=== PATIENT | female | born 1975 | race Caucasian/White ===

== ENCOUNTER 2017-06-21 03:57 | Emergency (ER) | payer MEDICAID ==
--- NOTE | 2017-06-21 04:17 | EDPHY ---
H & P Stated Complaint: SOB/CP Time Seen by Provider: 06/21/17 04:10 HPI/ROS: Chief Complaint: Shortness of breath, chest tightness HPI: 41-year-old wounds been having chest tightness and shortness of breath for about 3 days. Symptoms got little bit worse this morning she became concerned. She also had an episode of some tenderness in her left calf yesterday afternoon. No leg swelling. No substernal chest pain. No radiation. Does not have a history of similar episodes in the past. No recent trauma or long. Is of immobility. She is not on any hormone replacement. No fevers or chills. No nausea or vomiting. No cough. ROS: 10 point Review of Systems is negative except as noted in the HPI. PMH: Seizure disorder Social History: No smoking, no alcohol, CBD oil Family History: non-contributory Physical Exam: Gen: Awake, Alert, No Distress HEENT: Nose: no rhinorrhea Eyes: PERRLA, EOMI Mouth: Moist mucosa Neck: Supple, no JVD Chest: nontender, lungs clear to auscultation Heart: S1, S2 normal, no murmur Abd: Soft, non-tender, no guarding Back: no CVA tenderness, no midline tenderness Ext: no edema, non-tender Skin: no rash Neuro: CN II-XII intact, Sensation grossly intact, Strength 5/5 in bilateral upper and lower extremities - Personal History LMP (Females 10-55): 1-7 Days Ago Current Tetanus Diphtheria and Acellular Pertussis (TDAP): Unsure Tetanus Vaccine Date: 1985 - Medical/Surgical History Hx Asthma: No Hx Chronic Respiratory Disease: No Hx Diabetes: No Hx Cardiac Disease: No Hx Renal Disease: No Hx Cirrhosis: No Hx Alcoholism: No Hx HIV/AIDS: No Hx Splenectomy or Spleen Trauma: No Other PMH: TUBAL LIGATION, SZ - Social History Smoking Status: Never smoked Constitutional: Initial Vital Signs Temperature (C) 36.3 C 06/21/17 04:04 Heart Rate 82 06/21/17 04:04 Respiratory Rate 16 06/21/17 04:04 Blood Pressure 135/92 H 06/21/17 04:04 O2 Sat (%) 95 06/21/17 04:04 O2 Delivery Mode Room Air Allergies/Adverse Reactions: carbamazepine [From Tegretol] Allergy (Severe, Verified 05/06/11 11:02) Hives/ SWOLLEN TONGUE divalproex sodium [From Depakote] Allergy (Severe, Verified 05/06/11 11:02) RASH/ INCREASE SEIZURE ACTIVITY banana [Banana] Allergy (Intermediate, Verified 05/06/11 11:02) Hives peanut [Peanut] Allergy (Intermediate, Verified 05/06/11 11:02) SENSITIVE- SCRATCHY THROAT Shellfish *RETIRED-11/25/11 [Shellfish] Allergy (Intermediate, Verified 11:02) MIGRAINES latex [Latex] Allergy (Unknown, Verified 05/06/11 11:02) levetiracetam [From Keppra] Allergy (Unknown, Verified 05/06/11 11:02) Home Medications: Medication Instructions Recorded No Medications [NO HOME 1 ea MISC 12/03/10 MEDICATIONS] Cbd 06/21/17 Medical Decision Making - Diagnostics EKG Interpretation: ECG time 4:19 a.m., sinus rhythm with a rate of 70, normal axis, normal intervals, no acute ST or T-wave changes. Impression: Normal ECG. Imaging Results: Chest x-ray is negative per my interpretation. Imaging: I viewed and interpreted images myself ED Course/Re-evaluation: Patient's CBC, troponin, D-dimer, and chemistry entirely normal. Patient is resting comfortably. Vital signs are normal. Oxygen saturations are 98% she is not tachycardic. Blood pressure is normal. No evidence of acute cardiopulmonary disease at this time. Will discharge her with follow up as an outpatient, return for any concerns. - Data Points Laboratory Results: Laboratory Results 06/21/17 05:10 06/21/17 05:10 06/21/17 06/21/17 06/21/17 05:10 05:10 05:00 WBC 6.03 10^3/uL 10^3/uL (3.80-9.50) RBC 5.18 10^6/uL 10^6/uL (4.18-5.33) Hgb 15.1 g/dL g/dL (12.6-16.3) Hct 44.6 % % (38.0-47.0) MCV 86.1 fL fL (81.5-99.8) MCH 29.2 pg pg (27.9-34.1) MCHC 33.9 g/dL g/dL (32.4-36.7) RDW 13.5 % % (11.5-15.2) Plt Count 225 10^3/uL 10^3/uL (150-400) MPV 9.8 fL fL (8.7-11.7) Neut % (Auto) 64.2 % % (39.3-74.2) Lymph % (Auto) 25.2 % % (15.0-45.0) Lee % (Auto) 6.8 % % (4.5-13.0) Eos % (Auto) 2.3 % % (0.6-7.6) Baso % (Auto) 1.3 % % (0.3-1.7) Nucleat RBC Rel Count 0.0 % % (0.0-0.2) Absolute Neuts (auto) 3.87 10^3/uL 10^3/uL (1.70-6.50) Absolute Lymphs (auto) 1.52 10^3/uL 10^3/uL (1.00-3.00) Absolute Monos (auto) 0.41 10^3/uL 10^3/uL (0.30-0.80) Absolute Eos (auto) 0.14 10^3/uL 10^3/uL (0.03-0.40) Absolute Basos (auto) 0.08 10^3/uL 10^3/uL (0.02-0.10) Absolute Nucleated RBC 0.00 10^3/uL 10^3/uL (0-0.01) Immature Gran % 0.2 % % (0.0-1.1) Immature Gran # 0.01 10^3/uL 10^3/uL (0.00-0.10) D-Dimer < 0.27 ug/mLFEU ug/mLFEU (0.00-0.50) Sodium 140 mEq/L mEq/L (135-145) Potassium 4.2 mEq/L mEq/L (3.5-5.2) Chloride 105 mEq/L mEq/L (97-110) Carbon Dioxide 27 mEq/l mEq/l (22-31) Anion Gap 8 mEq/L mEq/L (8-16) BUN 6 mg/dL L mg/dL (7-23) Creatinine 0.7 mg/dL mg/dL (0.6-1.0) Estimated GFR > 60 Glucose 96 mg/dL mg/dL (70-100) Calcium 9.0 mg/dL mg/dL (8.5-10.4) Troponin I < 0.012 ng/mL ng/mL (0.000-0.034) Medications Given: Discontinued Medications Sodium Chloride (Ns) 1,000 mls @ 0 mls/hr IV ONCE ONE PRN Reason: Wide Open Stop: 06/21/17 05:24 Last Admin: 06/21/17 05:30 Dose: 1,000 mls Departure - Departure Disposition: Home, Routine, Self-Care Clinical Impression: Dyspnea Condition: Good Instructions: Dyspnea (ED) Additional Instructions: Follow up with primary care physician in 2-3 days for further evaluation. Return to the emergency department for increasing chest pain, shortness of breath, fevers, chills, or any other concerns. Referrals: NONE *PRIMARY CARE P,. [Primary Care Provider] - As per Instructions Ledy Marquez MD [Medical Doctor] - As per Instructions
[2017-06-21 05:19] LABS: PLATELET COUNT 225 10^3/uL (150-400)
[2017-06-21] MEDS ORDERED: NS 1,000 ML IV ONE (05:23)
[2017-06-21 06:06] VITALS: BP 102/67
== END 2017-06-21 06:26 | disposition home or self-care (01) ==
DX: R06.00 Dyspnea, unspecified (principal)